=== PATIENT | female | born 1995 | race Caucasian/White ===

== ENCOUNTER → 2024-12-15 | Outpatient (CLI) | payer OTHER | END | disposition home or self-care (01) | LOC: RAD 14:13 | PROVIDERS: ATTEND Family Medicine | DX: J98.4 Other disorders of lung (principal); R05.3 Chronic cough ==

== ENCOUNTER → 2024-12-25 | Outpatient (CLI) | payer OTHER | END | disposition home or self-care (01) | LOC: LAB 08:44 | PROVIDERS: ATTEND Nurse Practitioner Primary Care | DX: J45.40 Moderate persistent asthma, uncomplicated (principal); J98.4 Other disorders of lung ==

== ENCOUNTER 2024-12-31 11:48 | Emergency (ER) | payer OTHER ==
[~2024-12-31] VITALS: Ht 160 cm; Wt 61.2 kg
[2024-12-31] MEDS ORDERED: Lactated Ringer's Solution 1,000 ML IV SCH (12:45)
[2024-12-31] MEDS ORDERED: Ondansetron Hydrochloride 4 MG/2 ML VIAL IV ONE (12:45)
[2024-12-31 12:59] LABS: BASO # 0.0 10*3/uL (0.0-0.1); BASO % 0.2 % (0.0-1.0); EOS # 0.1 10*3/uL (0.0-0.4); EOS % 0.8 % (1.0-4.0); MEAN CELL VOLUME 91.3 fl (81.0-99.0); MEAN CORPUSCULAR HGB 29.6 pg (27.0-31.0); MEAN PLATELET VOLUME 10.5 fl (9.6-12.3); MONO # 0.3 10*3/uL (0.1-1.0); MONO % 3.3 % (3.0-9.0); NEUT # 8.5 10*3/uL (2.3-7.9); NEUT % 89.7 % (47.0-73.0); NUCLEATED RED BLOOD CELL 0.0 % (0.0-0.0); NUCLEATED RED BLOOD CELL 0.0 10*3/uL (0.0-0.0); PLATELET COUNT AUTOMATED 276 10*3/uL (130-400); RED CELL DISTRI WIDTH 12.7 % (0-14.5)
[2024-12-31] MEDS ORDERED: IOHEXOL 300 MG/ML 100 ML VIAL IV ONE (13:15)
[2024-12-31] MEDS ORDERED: MG-AL HYDROXIDE/SIMETICONE 30 ML UDC PO ONE (13:15)
[2024-12-31 13:16] LABS: BILIRUBIN Negative (Negative); BLOOD Negative (Negative); CLARITY Clear (Clear); COLOR Yellow (Yellow); KETONE Negative (Negative); LEUKO ESTERASE Negative (Negative); NITRITE Negative (Negative); PH 7.0 (4.5-8.0); SPECIFIC GRAVITY <= 1.005 (1.001-1.030); UROBILINOGEN 0.2 E.U./dl (0.0-1.0)
[2024-12-31 13:22] LABS: BUN 10 mg/dl (9-23); SGPT/ALT 14 U/L (5-49)
[2024-12-31 13:27] LABS: RBC 0-2 rbc/hpf (0-2); WBC 0-2 wbc/hpf (0-5)
[2024-12-31] MEDS ORDERED: IOHEXOL 300 MG/ML 100 ML VIAL ONE (13:45)
[2024-12-31] MEDS ORDERED: Ondansetron4 MG PO (15:31)
[2024-12-31] MEDS ORDERED: Carafate1 GM PO (15:31)
== END 2024-12-31 15:35 | disposition home or self-care (01) ==
LOC: ED 11:48
PROVIDERS: Emergency Medicine
DX: N83.209 Unspecified ovarian cyst, unspecified side (principal); R10.84 Generalized abdominal pain; Z88.1 Allergy status to other antibiotic agents; Z88.8 Allergy status to other drugs, medicaments and biological substances